=== PATIENT | female | born 1935 | race Hispanic/Latino ===

== ENCOUNTER 2021-01-03 01:43 | Inpatient (IN) | payer MEDICARE ==
[~2021-01-03] VITALS: Ht 157.5 cm; Wt 73.7 kg
[~2021-01-03 01:43] MED LIST: ALBUTEROL0.63 MG/3 PO; ASPIR 8181 MG PO; ATORVASTATIN CA20 MG PO; COLACE100 MG PO; CRESTOR10 MG PO; DECARA25000 UNIT PO; FUROSEMIDE40 MG PO; GLIMEPIRIDE2 MG PO; LASIX40 MG PO; LOSARTAN POTASS25 MG PO; METFORMIN HCL500 MG PO; METOPROLOL TART25 MG PO; NEURONTIN100 MG PO; POTASSIUM CHLO10 ME1 PO; SYNTHROID112 MCG PO; SYNTHROID88 MCG PO
[2021-01-03 02:30] VITALS: BP 115/71
[2021-01-03] MEDS ORDERED: SODIUM CHLORIDE FLUSH 10 ML SYR INJ PRN (02:45)
[2021-01-03] MEDS ORDERED: DEXTROSE 50% SYRINGE 50 ML IV PRN (03:00)
[2021-01-03] MEDS ORDERED: FUROSEMIDE40 MG PO (03:48)
[2021-01-03] MEDS ORDERED: CLOPIDOGREL75 MG PO (03:48)
[2021-01-03] MEDS ORDERED: SYNTHROID100 MCG PO (03:48)
[2021-01-03] MEDS ORDERED: GLYXAMBI 25 MG1 EACH PO (03:48)
[2021-01-03] MEDS ORDERED: DOCUSATE SODIU100 MG PO (03:48)
[2021-01-03] MEDS ORDERED: DOCUSATE SODIUM 100 MG CAP PO PRN (04:00)
[2021-01-03] MEDS ORDERED: ACETAMINOPHEN 325 MG TAB PO PRN (04:00)
[2021-01-03 05:52] LABS: BASOPHILS % 0.3 % (0.0-1.0); EOSINOPHILS # (AUTO) 0.1 (0.0-0.4); EOSINOPHILS % 0.5 % (0.0-6.0); HEMOGLOBIN 13.4 g/dL (12.0-16.0); LYMPHOCYTES # (AUTO) 0.9 (1.0-3.2); LYMPHOCYTES % 7.2 % (18.0-39.1); MEAN CORPUSCULAR HEMOGLOBIN 30.9 pg (28-32); MEAN CORPUSCULAR HGB CONC 34.4 g/dL (31-35); MEAN CORPUSCULAR VOLUME 90.1 fL (81-99); MONOCYTES # (AUTO) 1.3 (0.2-0.8); MONOCYTES % 10.5 % (4.4-11.3); NEUTROPHILS # (AUTO) 10.3 (2.1-6.9); PLATELET COUNT 176 x10e3/uL (140-360); RED BLOOD COUNT 4.33 x10e6/uL (3.6-5.1); RED CELL DISTRIBUTION WIDTH 12.8 % (11.7-14.4)
[2021-01-03] MEDS: LEVOTHYROXINE SODIUM 100 MCG TAB PO SCH (06:11)
[2021-01-03 06:29] LABS: ANION GAP 13.5 mmol/L (8-16); CALCIUM 8.5 mg/dL (8.4-10.2); CREATININE, SERUM 1.32 mg/dL (0.57-1.11); POTASSIUM 3.5 mmol/L (3.5-5.1)
[2021-01-03 06:42] LABS: CHOL/HDL RATIO 3.8 (3.0-3.6)
[2021-01-03 08:22] VITALS: BP 105/69
[2021-01-03] MEDS: INSULIN LISPRO 100 UNIT/1 ML 3ML VIAL SQ SCH ×4 (08:30→21:00)
[2021-01-03] MEDS ORDERED: SODIUM CHLORIDE 0.9% 100 ML ONE (09:23)
[2021-01-03] MEDS ORDERED: IOPAMIDOL 370 MG/ML 200 ML INFUS..BTL INJ ONE (09:24)
[2021-01-03] MEDS: METOPROLOL TARTRATE 25 MG TAB PO SCH ×2 (10:00→17:11)
[2021-01-03] MEDS: POTASSIUM CHLORIDE 10MEQ EA PO SCH ×3 (10:00→21:00)
[2021-01-03] MEDS: FUROSEMIDE 40 MG TAB PO SCH ×2 (10:00→17:11)
[2021-01-03] MEDS: CLOPIDOGREL BISULFATE 75 MG TAB PO SCH (10:00)
[2021-01-03 10:30] VITALS: BP 105/69
[2021-01-03 16:02] VITALS: BP 118/85
[2021-01-03] MEDS ORDERED: POVIDONE IODINE 10% 120 ML BTL EXT ONE (16:15)
[2021-01-03 20:00] VITALS: BP 105/50
[2021-01-03 21:00] VITALS: BP 105/50
[2021-01-03] MEDS: SIMVASTATIN 40 MG TAB PO SCH (21:00)
[2021-01-04] VITALS (8 sets, daily range): BP systolic 101–121; BP diastolic 45–61
[2021-01-04] MEDS ORDERED: AZITHROMYCIN 500MG/NS 250 ML 250 ML IV SCH (01:30)
[2021-01-04] MEDS ORDERED: SODIUM CHLORIDE 0.9% 250ML 250 ML ONE (01:48)
[2021-01-04] MEDS ORDERED: LEVOFLOXACIN 250MG/D5W 50ML 50 ML IV SCH (02:00)
[2021-01-04 02:26] LABS: CLARITY,URINE SL CLOUDY (CLEAR); COLOR,URINE YELLOW (YELLOW); KETONES,URINE NEGATIVE (NEGATIVE); LEUKOCYTE ESTERASE ,URINE SMALL (NEGATIVE); NITRITE,URINE NEGATIVE (NEGATIVE); PROTEIN,URINE DIPSTICK 1+ (NEGATIVE); URINE UROBILINOGEN 0.2 mg/dL (0.2 - 1)
[2021-01-04 02:32] LABS: BACTERIA,URINE MODERATE /HPF; EPITHELIAL CELLS,URINE MODERATE /LPF; WBC,URINE (MAN) 21-50 /HPF (0-5)
[2021-01-04] MEDS: LEVOTHYROXINE SODIUM 100 MCG TAB PO SCH (06:00)
[2021-01-04] MEDS: INSULIN LISPRO 100 UNIT/1 ML 3ML VIAL SQ SCH ×4 (07:30→21:00)
[2021-01-04] MEDS ORDERED: REGADENOSON 0.4 MG/5 ML SYR IV ONE (08:18)
[2021-01-04] MEDS: METOPROLOL TARTRATE 25 MG TAB PO SCH ×2 (09:00→16:30)
[2021-01-04] MEDS: POTASSIUM CHLORIDE 10MEQ EA PO SCH ×3 (09:00→21:45)
[2021-01-04] MEDS: FUROSEMIDE 40 MG TAB PO SCH ×2 (09:00→16:30)
[2021-01-04] MEDS: CLOPIDOGREL BISULFATE 75 MG TAB PO SCH (10:00)
[2021-01-04 16:28] LABS: ALBUMIN 2.8 g/dL (3.5-5.0); BILIRUBIN,DIRECT 0.3 mg/dL (0.0-0.5)
[2021-01-04] MEDS: MEROPENEM 500MG/ NS 50ML 50 ML IV SCH ×2 (16:30→22:30)
[2021-01-04] MEDS: SIMVASTATIN 40 MG TAB PO SCH (21:45)
[2021-01-05] VITALS (8 sets, daily range): BP systolic 107–115; BP diastolic 52–94
[2021-01-05] MEDS: LEVOTHYROXINE SODIUM 100 MCG TAB PO SCH (06:56)
[2021-01-05] MEDS: MEROPENEM 500MG/ NS 50ML 50 ML IV SCH ×3 (06:56→22:00)
[2021-01-05] MEDS: INSULIN LISPRO 100 UNIT/1 ML 3ML VIAL SQ SCH ×4 (08:00→20:50)
[2021-01-05 08:33] LABS: CHOL/HDL RATIO 4.9 (3.0-3.6)
[2021-01-05] MEDS: POTASSIUM CHLORIDE 10MEQ EA PO SCH ×3 (08:49→20:51)
[2021-01-05] MEDS: FUROSEMIDE 40 MG TAB PO SCH ×2 (08:49→17:37)
[2021-01-05] MEDS: METOPROLOL TARTRATE 25 MG TAB PO SCH ×2 (08:49→17:37)
[2021-01-05] MEDS: CLOPIDOGREL BISULFATE 75 MG TAB PO SCH (08:49)
[2021-01-05 08:53] LABS: THYROID STIMULATING HORMONE 8.565 uIU/mL (0.350-4.940)
[2021-01-05] MEDS: SIMVASTATIN 40 MG TAB PO SCH (20:51)
[2021-01-06] VITALS (8 sets, daily range): BP systolic 109–137; BP diastolic 53–80
[2021-01-06] MEDS: MEROPENEM 500MG/ NS 50ML 50 ML IV SCH ×3 (06:00→22:00)
[2021-01-06] MEDS: LEVOTHYROXINE SODIUM 100 MCG TAB PO SCH (06:00)
[2021-01-06] MEDS: INSULIN LISPRO 100 UNIT/1 ML 3ML VIAL SQ SCH ×4 (08:00→20:35)
[2021-01-06] MEDS: FUROSEMIDE 40 MG TAB PO SCH ×2 (08:25→16:45)
[2021-01-06] MEDS: CLOPIDOGREL BISULFATE 75 MG TAB PO SCH (08:25)
[2021-01-06] MEDS: METOPROLOL TARTRATE 25 MG TAB PO SCH ×2 (08:26→16:45)
[2021-01-06] MEDS: POTASSIUM CHLORIDE 10MEQ EA PO SCH ×3 (08:26→20:17)
[2021-01-06] MEDS: SIMVASTATIN 40 MG TAB PO SCH (20:17)
[2021-01-07] VITALS: BP 118/66
[2021-01-07] MEDS: LEVOTHYROXINE SODIUM 100 MCG TAB PO SCH (05:51)
[2021-01-07] MEDS: MEROPENEM 500MG/ NS 50ML 50 ML IV SCH (05:51)
[2021-01-07 08:06] VITALS: BP 137/81
[2021-01-07 08:16] VITALS: BP 137/81
[2021-01-07] MEDS: INSULIN LISPRO 100 UNIT/1 ML 3ML VIAL SQ SCH ×3 (09:30→17:01)
[2021-01-07] MEDS: FUROSEMIDE 40 MG TAB PO SCH ×2 (10:09→17:00)
[2021-01-07] MEDS: METOPROLOL TARTRATE 25 MG TAB PO SCH ×2 (10:10→17:00)
[2021-01-07] MEDS: CLOPIDOGREL BISULFATE 75 MG TAB PO SCH (10:10)
[2021-01-07] MEDS: POTASSIUM CHLORIDE 10MEQ EA PO SCH ×2 (10:11→16:30)
[2021-01-07] MEDS ORDERED: LOSARTAN POTASSIUM 25 MG TAB PO SCH (12:30)
[2021-01-07] MEDS ORDERED: ASPIRIN 81 MG ENTERIC COATED PO SCH (12:45)
[2021-01-07 12:53] VITALS: BP 118/82
[2021-01-07 15:28] VITALS: BP 111/88
[2021-01-07 16:02] LABS: ANION GAP 15.5 mmol/L (8-16); CALCIUM 9.1 mg/dL (8.4-10.2); CREATININE, SERUM 1.13 mg/dL (0.57-1.11); POTASSIUM 3.5 mmol/L (3.5-5.1)
[2021-01-07] MEDS ORDERED: K-DUR10 MEQ PO (16:51)
[2021-01-07] MEDS ORDERED: COZAAR25 MG PO (16:53)
[2021-01-07] MEDS ORDERED: POTASSIUM CHLO20 ME1 PO (16:53)
== END 2021-01-07 18:52 | disposition home or self-care (01) | DRG 193 ==
LOC: MED/SURG2 02:30
PROVIDERS: ADMIT Internal Medicine; ATTEND Internal Medicine
DX: J18.9 Pneumonia, unspecified organism (principal); G93.41 Metabolic encephalopathy; I50.23 Acute on chronic systolic (congestive) heart failure; I13.0 Hypertensive heart and chronic kidney disease with heart failure and stage 1 through stage 4 chronic kidney disease, or unspecified chronic kidney disease; N39.0 Urinary tract infection, site not specified; E11.22 Type 2 diabetes mellitus with diabetic chronic kidney disease; N18.30 Chronic kidney disease, stage 3 unspecified; I25.10 Atherosclerotic heart disease of native coronary artery without angina pectoris; Z95.1 Presence of aortocoronary bypass graft; E78.5 Hyperlipidemia, unspecified; R01.1 Cardiac murmur, unspecified; E11.65 Type 2 diabetes mellitus with hyperglycemia; Z88.1 Allergy status to other antibiotic agents; Z88.0 Allergy status to penicillin; Z20.822 Contact with and (suspected) exposure to COVID-19
CPT/HCPCS: 36415; 71046; 71260; 76700; 78452; 80048; 80061; 80076; 81001; 82948; 83036; 83690; 84443; 85025; 87040; 87086; 93017; 93306; 93970; 99251; A9502; J0456; J1956; J7050; Q9967

== ENCOUNTER 2021-04-17 13:01 | Inpatient (IN) | payer MEDICARE ==
[~2021-04-17] VITALS: Ht 157.5 cm; Wt 73.5 kg
[~2021-04-17 13:01] MED LIST changes: +CLOPIDOGREL75 MG PO; +COZAAR25 MG PO; +DOCUSATE SODIU100 MG PO; +GLYXAMBI 25 MG1 EACH PO; +K-DUR10 MEQ PO; +POTASSIUM CHLO20 ME1 PO; +SYNTHROID100 MCG PO
[2021-04-17 14:30] LABS: BASOPHILS # (AUTO) 0.1 (0.0-0.1); EOSINOPHILS # (AUTO) 0.4 (0.0-0.4); EOSINOPHILS % 5.1 % (0.0-6.0); HEMATOCRIT 43.3 % (34.2-44.1); HEMOGLOBIN 14.5 g/dL (12.0-16.0); LYMPHOCYTES # (AUTO) 1.5 (1.0-3.2); LYMPHOCYTES % 21.7 % (18.0-39.1); MEAN CORPUSCULAR HEMOGLOBIN 31.3 pg (28-32); MEAN CORPUSCULAR HGB CONC 33.5 g/dL (31-35); MEAN CORPUSCULAR VOLUME 93.5 fL (81-99); MONOCYTES % 13.6 % (4.4-11.3); NEUTROPHILS # (AUTO) 4.1 (2.1-6.9); NEUTROPHILS % 58.2 % (38.7-80.0); PLATELET COUNT 202 x10e3/uL (140-360); RED BLOOD COUNT 4.63 x10e6/uL (3.6-5.1); RED CELL DISTRIBUTION WIDTH 13.1 % (11.7-14.4)
[2021-04-17 14:34] LABS: INR 0.87; PROTHROMBIN TIME 12.4 seconds (11.9-14.5)
[2021-04-17 14:35] LABS: PARTIAL THROMBOPLASTIN TIME 26.6 seconds (23.8-35.5)
[2021-04-17 14:44] LABS: ALBUMIN 3.9 g/dL (3.5-5.0); ALBUMIN/GLOBULIN RATIO 1.1 (0.8-2.0); CALCIUM 9.3 mg/dL (8.4-10.2); CREATININE, SERUM 1.46 mg/dL (0.57-1.11)
[2021-04-17 14:52] LABS: CREATINE KINASE MB 0.9 ng/mL (0-5.0)
[2021-04-17] MEDS ORDERED: ONDANSETRON HCL INJ 2MG/ML 2ML 2 MG/ML VIAL IV PRN (16:45)
[2021-04-17] MEDS ORDERED: DEXTROSE 50% SYRINGE 50 ML IV PRN (19:45)
[2021-04-17 20:00] VITALS: BP 122/51
[2021-04-17] MEDS: SIMVASTATIN 20 MG TAB PO SCH (20:22)
[2021-04-17 20:30] VITALS: BP 122/51
[2021-04-17] MEDS: FUROSEMIDE INJ 10 MG/ML 4 ML VIAL IV SCH (20:40)
[2021-04-17] MEDS: INSULIN LISPRO 100 UNIT/1 ML 3ML VIAL SQ SCH (20:41)
[2021-04-17 21:45] LABS: CREATINE KINASE MB 0.7 ng/mL (0-5.0)
[2021-04-17 22:14] VITALS: BP 122/51
[2021-04-17 23:53] VITALS: BP 123/51
[2021-04-18] VITALS (7 sets, daily range): BP systolic 108–117; BP diastolic 55–94
[2021-04-18 05:53] LABS: BASOPHILS # (AUTO) 0.1 (0.0-0.1); EOSINOPHILS # (AUTO) 0.4 (0.0-0.4); EOSINOPHILS % 4.7 % (0.0-6.0); HEMATOCRIT 45.2 % (34.2-44.1); HEMOGLOBIN 14.9 g/dL (12.0-16.0); LYMPHOCYTES # (AUTO) 1.6 (1.0-3.2); LYMPHOCYTES % 18.6 % (18.0-39.1); MEAN CORPUSCULAR HEMOGLOBIN 30.9 pg (28-32); MEAN CORPUSCULAR VOLUME 93.8 fL (81-99); MONOCYTES % 11.4 % (4.4-11.3); NEUTROPHILS # (AUTO) 5.3 (2.1-6.9); NEUTROPHILS % 63.9 % (38.7-80.0); PLATELET COUNT 189 x10e3/uL (140-360); RED BLOOD COUNT 4.82 x10e6/uL (3.6-5.1)
[2021-04-18] MEDS ORDERED: LEVOTHYROXINE SODIUM 100 MCG TAB PO SCH (06:00)
[2021-04-18 06:25] LABS: ALBUMIN 3.9 g/dL (3.5-5.0); ALBUMIN/GLOBULIN RATIO 1.1 (0.8-2.0); ANION GAP 20.6 mmol/L (8-16); CALCIUM 9.3 mg/dL (8.4-10.2); CHOL/HDL RATIO 3.5 (3.0-3.6); CREATININE, SERUM 1.41 mg/dL (0.57-1.11); POTASSIUM 3.6 mmol/L (3.5-5.1)
[2021-04-18 06:55] LABS: CREATINE KINASE MB 0.7 ng/mL (0-5.0)
[2021-04-18] MEDS ORDERED: METOPROLOL TARTRATE 25 MG TAB ONE (07:58)
[2021-04-18] MEDS: INSULIN LISPRO 100 UNIT/1 ML 3ML VIAL SQ SCH ×4 (08:30→20:53)
[2021-04-18] MEDS ORDERED: ASPIRIN 81 MG ENTERIC COATED PO SCH (09:00)
[2021-04-18] MEDS ORDERED: METOPROLOL TARTRATE 25 MG TAB PO SCH (09:00)
[2021-04-18] MEDS ORDERED: CLOPIDOGREL BISULFATE 75 MG TAB PO SCH (09:00)
[2021-04-18] MEDS: FUROSEMIDE INJ 10 MG/ML 4 ML VIAL IV SCH (09:42)
[2021-04-18] MEDS: METOPROLOL TARTRATE 25 MG TAB PO SCH ×2 (09:42→20:30)
[2021-04-18] MEDS ORDERED: ONDANSETRON HCL 4 MG ORAL DISINTEGRATING TAB PO PRN (19:45)
[2021-04-18] MEDS: SIMVASTATIN 20 MG TAB PO SCH (20:30)
== END 2021-04-18 21:30 | disposition home or self-care (01) | DRG 313 ==
LOC: ER 13:57 → ERHOLD 16:40 → MED/SURG 19:48
PROVIDERS: ADMIT Internal Medicine; ATTEND Internal Medicine
DX: R07.89 Other chest pain (principal); I50.22 Chronic systolic (congestive) heart failure; I25.10 Atherosclerotic heart disease of native coronary artery without angina pectoris; I11.0 Hypertensive heart disease with heart failure; Z95.1 Presence of aortocoronary bypass graft; E78.5 Hyperlipidemia, unspecified; E11.9 Type 2 diabetes mellitus without complications; E03.9 Hypothyroidism, unspecified; Z20.822 Contact with and (suspected) exposure to COVID-19
CPT/HCPCS: 36415; 71045; 80053; 80061; 82550; 82553; 82948; 83036; 83735; 83880; 84484; 85025; 85610; 85730; 93005; 96372; 96376; 99284; J1940; U0002